=== PATIENT | female | born 1955 | race Caucasian/White ===

== ENCOUNTER 2017-10-14 07:30 | Inpatient (IN) | payer SELFPAY ==
[2017-10-14 07:47] VITALS: BMI 42.0
--- NOTE | 2017-10-14 08:00 | ED PDOC ---
Arrival/HPI - General Chief Complaint: Cough, Cold, Congestion Time Seen by Provider: 10/14/17 07:43 Historian: Patient - Critical Care Critical Care Minutes: 30 minutes - History of Present Illness Narrative History of Present Illness (Text): 10/14/17 07:53 61 year old obese Greek female, who recently immigrated from [place] one week ago with no significant past medical history, presents to the Emergency department complaining of blood in her cough, mouth and nares since this morning. Patient additionally informs petechial rash and ecchymosis on her body. Patient states visiting a doctor back in [place] and being prescribed medication with no improvement to symptoms. Patient denies any fever, chills, nausea, vomiting, diarrhea, abdominal pain, chest pain, shortness of breath or any other complaints. Patient denies any social history of smoking or drinking alcohol. Time/Duration: 4-6 hours Symptom Onset: Gradual Symptom Course: Unchanged Activities at Onset: Light Context: Home Associated Symptoms (Text): 10/14/17 08:54 Patient is here visiting her son from [place]. She arrives several days ago. The son translates. Son reports that one week ago in [place] she began to cough up blood. She was seen by her doctor and put on an unknown medication. Coughing up blood has continued and he brought her to the emergency department. I observed on exam blood in her naris bleeding from her gums bleeding in her throat a petechial rash on her chest and generalized ecchymosis. She has some generalized fatigue. No weight loss. She is morbidly obese. No congestion or dyspnea. No chest pain or palpitations. No abdominal pain nausea or vomiting. She denies any blood in her bowels. Past Medical History - Provider Review Nursing Documentation Reviewed: Yes - Travel History If Yes, travel location?: [place] - Infectious Disease Hx of Infectious Diseases: None - Reproductive Menopause: Yes - Cardiac Hx Cardiac Disorders: No - Pulmonary Hx Respiratory Disorders: No - Neurological Hx Neurological Disorder: No - Renal Hx Renal Disorder: No - Psychiatric Hx Substance Use: No - Anesthesia Hx Anesthesia: No Family/Social History - Physician Review Nursing Documentation Reviewed: Yes Family/Social History: No Known Family HX Smoking Status: Never Smoked Hx Alcohol Use: No Hx Substance Use: No Allergies/Home Meds Allergies/Adverse Reactions: Allergies No Known Allergies Allergy (Verified 10/14/17 07:45) Home Medications: Home Meds Medication Instructions Recorded Confirmed Unobtainable 10/14/17 10/14/17 Review of Systems - Physician Review All systems were reviewed & negative as marked: Yes - Review of Systems Constitutional: Fatigue. absent: Fevers Eyes: Normal ENT: Epistaxis Respiratory: Cough, Sputum. absent: SOB, Wheezing Cardiovascular: Normal. absent: Chest Pain, Palpitations, Syncope Gastrointestinal: Normal. absent: Abdominal Pain, Diarrhea, Nausea, Vomiting, Hematochezia, Hematemesis Genitourinary Female: Normal. absent: Hematuria Musculoskeletal: Normal Skin: Rash (petechial), Other (ecchymosis on her skin) Neurological: Normal Psychiatric: Normal Physical Exam Vital Signs Reviewed: Yes Vital Signs Temp Pulse Resp BP Pulse Ox 10/14/17 07:46 97.8 F 90 18 146/89 95 Temperature: Afebrile Blood Pressure: Normal Pulse: Regular Respiratory Rate: Normal Appearance: Positive for: Non-Toxic, Comfortable, Other (morbidly obese) Pain Distress: None Mental Status: Positive for: other (Awake alert and cooperative) - Systems Exam Head: Present: Atraumatic, Normocephalic Pupils: Present: PERRL Extroacular Muscles: Present: EOMI Conjunctiva: Present: Normal Ears: Present: NORMAL TM, Normal Canal. No: Erythema Mouth: Present: Moist Mucous Membranes Pharnyx: Present: Other (blood in back of her throat). No: ERYTHEMA, EXUDATE, TONSILS ENLARGED Nose (Internal): Present: Other (Blood in her right nare) Neck: Present: Normal Range of Motion Respiratory/Chest: Present: Good Air Exchange, Decreased Breath Sounds ( bilaterally). No: Respiratory Distress, Accessory Muscle Use Cardiovascular: Present: Regular Rate and Rhythm, Normal S1, S2. No: Murmurs Abdomen: No: Tenderness, Distention, Peritoneal Signs, Rebound, Guarding Back: Present: Normal Inspection Upper Extremity: Present: Normal Inspection. No: Cyanosis, Edema Lower Extremity: Present: Normal Inspection. No: Edema Neurological: Present: GCS=15, CN II-XII Intact, Speech Normal, Motor Func Grossly Intact Skin: Present: Warm, Dry, Normal Color, Other (petechial rash. Ecchymosis on both her extremities.). No: Rashes Psychiatric: Present: Alert, Normal Insight, Normal Concentration Medical Decision Making ED Course and Treatment: 10/14/17 08:04 Impression: 61 year old female presents to the Emergency department for blood in her cough, nares and mouth. Differential Diagnosis included but are not limited to: Leukemia Plan: -- Blood Type/Screen -- EKG -- Labs -- Chest X-ray -- Blood Culture -- Reassess and disposition Progress Notes: 10/14/17 08:19 EKG shows normal sinus rhythm rate approximately [address] or T-wave changes and Q waves inferiorly. 10/14/17 08:[address] Gomes, who is aware and accepts patient to the ICU. 10/14/17 08:[address] Anders, who is aware and agrees to accept patient under his service. - Lab Interpretations Lab Results: 10/14/17 08:00 10/14/17 08:00 Lab Results 10/14/17 08:00: Blood Type Pending, Antibody Screen Pending, BBK History Checked No verified bt 10/14/17 08:00: Sodium 137, Potassium 4.6, Chloride 100, Carbon Dioxide 19 L, Anion Gap 23 H, BUN 47 H, Creatinine 1.4 H, Est GFR ( Amer) 46, Est GFR ( Non-Af Amer) 38, Random Glucose 603 H*, Calcium 9.2, Total Bilirubin 0.6, AST 45 H, ALT 42, Alkaline Phosphatase 101, Lactate Dehydrogenase 459, Total Creatine Kinase 24 L, Troponin I < 0.01, Total Protein 8.1, Albumin 3.6, Globulin 4.6, Albumin/Globulin Ratio 0.8 L, Lipase 408 H 10/14/17 08:00: WBC 1.1 L*, RBC 4.54, Hgb 11.7 L, Hct 36.3, MCV 80.0, MCH 25.8, MCHC 32.2, RDW 15.2 H, Plt Count 2 L*, Gran % 10.2 L, Lymph % (Auto) 81.5 H, [place] % (Auto) 7.4 H, Eos % (Auto) 0.0 L, Baso % (Auto) 0.9, Gran # 0.11 L, Lymph # (Auto) 0.9 L, [place] # (Auto) 0.1, Eos # (Auto) 0.0, Baso # (Auto) 0.01, Neutrophils % (Manual) 4 L, Lymphocytes % (Manual) 90 H, Monocytes % (Manual) 6 , Platelet Evaluation Low 10/14/17 08:00: PT 14.1 H, INR 1.22 H, APTT 25.7 - RAD Interpretation Radiology Orders: 10/14/17 07:54 CHEST PORTABLE [RAD] Stat Chest 1 view shows no infiltrate effusion or cardiomegaly. Inventory Assistant: ED Physician - Medication Orders Current Medication Orders: Sodium Chloride (Sodium Chloride 0.9%) 1,000 mls @ 500 mls/hr IV ONCE ONE Stop: 10/14/17 10:52 Discontinued Medications Insulin Human Regular (Humulin R) 10 units IV ONCE STA Stop: 10/14/17 08:54 - Scribe Statement The provider has reviewed the documentation as recorded by the Scribe Tracie Haynes. All medical record entries made by the Scribe were at my direction and personally dictated by me. I have reviewed the chart and agree that the record accurately reflects my personal performance of the history, physical exam, medical decision making, and the department course for this patient. I have also personally directed, reviewed, and agree with the discharge instructions and disposition. Disposition/Present on Arrival - Present on Arrival Any Indicators Present on Arrival: No History of DVT/PE: No History of Uncontrolled Diabetes: No Urinary Catheter: No History of Decub. Ulcer: No History Surgical Site Infection Following: None - Disposition Have Diagnosis and Disposition been Completed?: Yes Diagnosis: Pancytopenia, Hyperglycemia Disposition: HOSPITALIZED Disposition Time: 08:59 Patient Plan: ICU Patient Problems: Current Active Problems Problem Status Onset Hyperglycemia Acute Pancytopenia Acute Condition: CRITICAL
[2017-10-14 08:22] LABS: BASO # 0.01 K/mm3 (0.0-2.0); BASO % 0.9 % (0.0-3.0); GRAN # 0.11 (1.4-6.5); GRAN % 10.2 % (50.0-68.0); HEMOGLOBIN 11.7 g/dL (12.0-16.0); LYMPH # 0.9 (1.2-3.4); LYMPH % 81.5 % (22.0-35.0); MEAN CORPUSCULAR HEMOGLOBIN 25.8 pg (25.0-35.0); MEAN CORPUSCULAR HGB CONC 32.2 g/dl (31.0-37.0); MONO # 0.1 (0.1-0.6); MONO % 7.4 % (1.0-6.0); RBC 4.54 10^6/uL (3.5-6.1); RED CELL DISTRIBUTION WIDTH 15.2 % (11.5-14.5)
[2017-10-14 08:27] LABS: PLATELET COUNT 2 10^3/uL (120.0-450.0); WHITE BLOOD COUNT 1.1 10^3/ul (4.5-11.0)
[2017-10-14 08:31] LABS: INR 1.22 (0.93-1.08); PARTIAL THROMBOPLASTIN TIME 25.7 Seconds (25.1-36.5); PROTHROMBIN TIME 14.1 SECONDS (9.4-12.5)
[2017-10-14 08:44] LABS: TROPONIN I < 0.01 ng/mL
[2017-10-14 08:47] LABS: ALB/GLOB RATIO 0.8 (1.1-1.8); ALBUMIN 3.6 g/dL (3.0-4.8); ALT/SGPT 42 U/L (7-56); AST/SGOT 45 U/L (14-36); BLOOD UREA NITROGEN 47 mg/dL (7-21); CALCIUM 9.2 mg/dL (8.4-10.5); GFR AFRICAN-AMERICAN 46; GFR NON-AFRICAN AMERICAN 38; LIPASE 408 U/L (23-300)
[2017-10-14] MEDS ORDERED: Sodium Chloride 0.9% 1,000 ML IV ONE (08:53)
[2017-10-14] MEDS ORDERED: Insulin Regular 1 UNITS/0.01 ML ML IV STA (08:53)
[2017-10-14 08:54] LABS: LYMPHOCYTE 90 % (22.0-35.0); MONOCYTE 6 % (1.0-6.0); NEUTROPHIL 4 % (50.0-70.0); PLATELET ESTIMATE LOW (NORMAL)
--- NOTE | 2017-10-14 08:55 | RAD ---
HISTORY: cough COMPARISON: No prior. FINDINGS: LUNGS: No active pulmonary disease. PLEURA: No significant pleural effusion identified, no pneumothorax apparent. CARDIOVASCULAR: Normal. OSSEOUS STRUCTURES: No significant abnormalities. VISUALIZED UPPER ABDOMEN: Normal. OTHER FINDINGS: None. IMPRESSION: No active disease.
[2017-10-14 09:48] VITALS: O2SAT 98
[2017-10-14] MEDS ORDERED: Insulin Regular 100 UNITS in Sodium Chloride 0.9% 99 ML IV PRN (09:50)
[2017-10-14] MEDS ORDERED: Sodium Chloride 0.9% 1,000 ML IV STA (09:50)
[2017-10-14 09:57] LABS: PLATELET COUNT MANUAL 3 K/mm3 (120-450)
[2017-10-14] MEDS ORDERED: Sodium Chloride 0.9% 1,000 ML IV SCH (10:00)
[2017-10-14 10:09] LABS: VENOUS BLOOD GAS BASE EXCESS -3.9 mmol/L (0.0-2.0); VENOUS BLOOD GAS PO2 64 mm/Hg (30-55); VENOUS BLOOD PH 7.34 (7.32-7.43)
--- NOTE | 2017-10-14 10:13 | CP.PCM.HP ---
<Martita Matthew - Last Filed: 10/14/17 12:48> History of Present Illness - History of Present Illness History of Present Illness: CC: Coughing blood Patient is a 61 y/o Beninese female with PMHx of morbidly obese, DM ?hemophilia/ thin blood presenting with hemoptysis. Patient is visiting from [place] 4 days ago, speaks only Uzbek, son was at the bed side and served as the translation. 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 This Am patient coughed up blood, thus son brought her to the ED. Prior to this, patient had similar episode 7 years ago in [place], was diagnosed with ?hemophilia , and was giving similar medications with significant improvement. Patient doesn 't remember the name of the medication. Patient other gregorio, denies weakness, headache, dizziness, weight loss, fever or chills. Admits to gum bleed, and petechial rash. No histories of malignancies. States has diabetes induced by medication she was taking in [place] for her hemophilia. Admits to chronic knee pain doni. Denies any insect bites. In the ED, patient was found to be pancytopenia with severe neutropenia, and plt of 2. Patient is placed on neutropenic protocol, and is to be admitted to ICU. Patient also has glucose of 600, with gap of 18, and is to be placed on insulin drip. PMHx: Morbidly obese, DM, ?hemophilia. PSHx: Denies FMHx: Mom diabetes, doesn't know her dad's medical history, denies family histories of cancers or blood disorders. Denies issues with child in the past. Social: Denies alcohol, tobacco, and illicit drug use. Lives with son in [facility], able to ambulate with no difficulties. Home meds: Unknown Allergies: Denies Present on Admission - Present on Admission Any Indicators Present on Admission: Yes History of DVT/PE: No History of Uncontrolled Diabetes: Yes Urinary Catheter: No Decubitus Ulcer Present: No Review of Systems - Constitutional Constitutional: absent: Chills, Daytime Sleepiness, Excessive Sweating, Fatigue , Fever, Frequent Falls, Headache, Lethargy, Malaise, Night Sweats, Sleep Apnea , Weight Loss, Weakness - EENT Eyes: absent: Blurred Vision, Change in Vision Ears: absent: Abnormal Hearing, Dizziness Nose/Mouth/Throat: Bleeding Gums. absent: Sore Throat - Cardiovascular Cardiovascular: absent: Chest Pain, Chest Pain at Rest, Claudication, Dyspnea, Dyspnea on Exertion, Edema, Lightheadedness, Orthopnea, Palpitations, Syncope - Respiratory Respiratory: Cough, Hemoptysis. absent: Dyspnea, Dyspnea on Exertion, Wheezing , Snoring, Stridor, Chest Congestion, Pain with Coughing - Gastrointestinal Gastrointestinal: absent: Abdominal Pain, Belching, Bloating, Cramping, Diarrhea , Dyspepsia, Dysphagia, Heartburn, Nausea - Genitourinary Genitourinary: absent: Dysuria, Hematuria, Pyuria - Musculoskeletal Musculoskeletal: absent: Arthralgias, Back Pain, Myalgias, Neck Pain, Numbness, Stiffness - Integumentary Integumentary: Bleeding Lesions, Rash. absent: Photosensitivity - Neurological Neurological: absent: Disequilibrium, Dizziness, Headaches, Weakness - Psychiatric Psychiatric: absent: Anxiety - Endocrine Endocrine: absent: Fatigue, Palpitations - Hematologic/Lymphatic Hematologic: Easy Bleeding, Easy Bruising. absent: Lymphadenopathy Past Patient History - Infectious Disease Hx of Infectious Diseases: None - Past Social History Smoking Status: Never Smoked Alcohol: None Drugs: Denies Home Situation {Lives}: With Family - CARDIAC Hx Cardiac Disorders: No - PULMONARY Hx Respiratory Disorders: No - NEUROLOGICAL Hx Neurological Disorder: No - RENAL Hx Chronic Kidney Disease: No - PSYCHIATRIC Hx Substance Use: No - ANESTHESIA Hx Anesthesia: No Meds Allergies/Adverse Reactions: Allergies Allergy/AdvReac Type Severity Reaction Status Date / Time No Known Allergies Allergy Verified 10/14/17 07:45 Physical Exam - Constitutional Appears: No Acute Distress - Head Exam Head Exam: ATRAUMATIC, NORMAL INSPECTION, NORMOCEPHALIC - Eye Exam Eye Exam: EOMI, Normal appearance, PERRL. absent: Scleral icterus Pupil Exam: NORMAL ACCOMODATION - ENT Exam ENT Exam: Mucous Membranes Dry Additional comments: + bleeding gum dry bleed in the nose. - Neck Exam Additional comments: + obese short neck, unable to appreciate any thyromegaly. - Respiratory Exam Respiratory Exam: Clear to Auscultation Bilateral, NORMAL BREATHING PATTERN. absent: Rales, Rhonchi, Wheezes, Respiratory Distress, Stridor - Cardiovascular Exam Cardiovascular Exam: REGULAR RHYTHM, RRR, +S2. absent: Bradycardia, Tachycardia , Diastolic murmur, Gallop, Irregular Rhythm, JVD, Rubs, Systolic Murmur - GI/Abdominal Exam GI & Abdominal Exam: Normal Bowel Sounds, Soft. absent: Distended, Firm, Guarding, Mass, Rebound, Rigid, Tenderness Additional comments: + Obese abdomen. - Extremities Exam Extremities exam: Positive for: normal inspection. Negative for: pedal edema, tenderness, pedal pulses present - Back Exam Back exam: rash noted. absent: tenderness - Neurological Exam Neurological exam: Alert, Oriented x3, Reflexes Normal - Psychiatric Exam Psychiatric exam: Normal Affect, Normal Mood - Skin Skin Exam: Dry, Petechiae (in the back, truck, and extremities. ), Rash ( ecchymosis on doni upper extremities. ), Warm Results - Vital Signs Recent Vital Signs: Last Vital Signs Temp 97.8 F 10/14/17 07:46 Pulse 80 10/14/17 09:32 Resp 16 10/14/17 09:32 BP 112/76 10/14/17 09:32 Pulse Ox 98 10/14/17 09:32 - Labs Result Diagrams: 10/14/17 08:00 10/14/17 09:45 Labs: Laboratory Results - last 24 hr 10/14/17 10/14/17 10/14/17 08:35 09:50 09:50 Manual Plt Count 3 L* Retic Count 1.34 pO2 64 H VBG pH 7.34 VBG pCO2 40.0 VBG HCO3 21.6 VBG Total CO2 22.8 VBG O2 Sat (Calc) 94.0 H VBG Base Excess -3.9 L VBG Potassium 3.8 Sodium 135.0 Chloride 101.0 Glucose 551 H* Lactate 3.3 H FiO2 21.0 Venous Blood Potassium 3.8 Blood Type Confirm O POSITIVE Assessment & Plan - Assessment and Plan (Free Text) Assessment: Patient is a 61 y/o Beninese female with PMHx of morbidly obese, DM, ? hemophilia presenting with hemoptysis for 1 week, along with petechial rash. Patient was found to have pancytopenia with severe neutropenia, and thrombocytopenia with plt of 2. Patient also has uncontrolled diabetes with gap of 18, and is to be admitted in ICU for further management and monitoring. Plan: 1) Hemoptysis likely due to severe thrombocytopnia with platelet count of 2 - PT/INR/APTT appears withing normal limit - Work up and differential as stated below - Patient to be cross mashed and transfused a unit of plt - Hematology is consulted 2) Pancytopenia with differentials including aplastic anemia/Acute leukemia/MDS/ autoimmune/viral ( HIV, EBV)/ HLH/Malaria/ paraneoplastic syndrome - ANC of 0.11 lymph%81.5% , plt of 2, - Heme/onc consulted,concerning for acute leukemia, patient need to be transferred to Tertiary care center. - Patient to be type and crossed and transfused a unit of plt - Retic count, manual plt, and peripheral smear ordered. - iorn panel, vit b12 and folate ordered. - Uric acid ordered - HIV/EBV ordered - Electrophoresis ordered. - Will consider Myeloma work-up - Autoimmune work up sent - Will add fibrinogen to make sure patient is not in DIC - 3) Hyperosmolar hyperglycemia- gap of 18 - Will start insulin drip, and check fingerstick q1 - NS@200cc/hr - BMP Q6H - HGBA1C ordered - Diabetic education 4) Lactic acidosis likely due to rapid cell turnover - On NS@ 200cc/hr. 5) Severe thrombocytopenia- work up as above - CT head pending. 5) DVT/gi prophylaxis: VTE compressive devices, and protonix. Spoke to Dr Colon, recommended patient be transferred to a tertiary care hospital. Contact [facility] spoke to Heme/onc fellow Dr Nataliya Julian at [phone]. Also spoke to transfer center, the accepting physician will be Dr Mitchell Meade. - Date & Time Date: 10/14/17 Time: 12:15 <Fariha Cueva - Last Filed: 10/14/17 14:29> Results - Vital Signs Recent Vital Signs: Last Vital Signs Temp 97.8 F 10/14/17 07:46 Pulse 80 10/14/17 09:32 Resp 16 10/14/17 09:32 BP 112/76 10/14/17 09:32 Pulse Ox 98 10/14/17 09:32 - Labs Result Diagrams: 10/14/17 08:00 10/14/17 09:45 Labs: Laboratory Results - last 24 hr 10/14/17 10/14/17 10/14/17 08:35 09:45 09:45 Manual Plt Count Retic Count Fibrinogen pO2 VBG pH VBG pCO2 VBG HCO3 VBG Total CO2 VBG O2 Sat (Calc) VBG Base Excess VBG Potassium Glucose Lactate FiO2 Sodium 136 Potassium 3.8 Chloride 103 Carbon Dioxide 17 L Anion Gap 20 BUN 49 H Creatinine 1.3 H Est GFR ( Amer) 50 Est GFR (Non-Af Amer) 42 POC Glucose (mg/dL) Random Glucose 570 H* Uric Acid 6.9 H Calcium 9.1 Iron 37 L TIBC 352 % Saturation 10 L TSH 3rd Generation Venous Blood Potassium Blood Type Confirm O POSITIVE 10/14/17 10/14/17 10/14/17 09:50 09:50 10:34 Manual Plt Count 3 L* Retic Count 1.34 Fibrinogen pO2 64 H VBG pH 7.34 VBG pCO2 40.0 VBG HCO3 21.6 VBG Total CO2 22.8 VBG O2 Sat (Calc) 94.0 H VBG Base Excess -3.9 L VBG Potassium 3.8 Glucose 551 H* Lactate 3.3 H FiO2 21.0 Sodium 135.0 Potassium Chloride 101.0 Carbon Dioxide Anion Gap BUN Creatinine Est GFR ( Amer) Est GFR (Non-Af Amer) POC Glucose (mg/dL) 373 H Random Glucose Uric Acid Calcium Iron TIBC % Saturation TSH 3rd Generation Venous Blood Potassium 3.8 Blood Type Confirm 10/14/17 10/14/17 10/14/17 11:15 11:54 12:25 Manual Plt Count Retic Count Fibrinogen 524 H pO2 VBG pH VBG pCO2 VBG HCO3 VBG Total CO2 VBG O2 Sat (Calc) VBG Base Excess VBG Potassium Glucose Lactate FiO2 Sodium Potassium Chloride Carbon Dioxide Anion Gap BUN Creatinine Est GFR ( Amer) Est GFR (Non-Af Amer) POC Glucose (mg/dL) 338 H 398 H Random Glucose Uric Acid Calcium Iron TIBC % Saturation TSH 3rd Generation Venous Blood Potassium Blood Type Confirm 10/14/17 10/14/17 10/14/17 12:45 12:49 13:56 Manual Plt Count Retic Count Fibrinogen pO2 VBG pH VBG pCO2 VBG HCO3 VBG Total CO2 VBG O2 Sat (Calc) VBG Base Excess VBG Potassium Glucose Lactate FiO2 Sodium Potassium Chloride Carbon Dioxide Anion Gap BUN Creatinine Est GFR ( Amer) Est GFR (Non-Af Amer) POC Glucose (mg/dL) 250 H 244 H Random Glucose Uric Acid Calcium Iron TIBC % Saturation TSH 3rd Generation 0.62 Venous Blood Potassium Blood Type Confirm Attending/Attestation - Attestation I have personally seen and examined this patient.: Yes I have fully participated in the care of the patient.: Yes I have reviewed all pertinent clinical information: Yes Notes (Text): 10/14/17 14:23 Attending note; Patient seen and examined with resident in ER. Patient's son by the bedside. Patient is a 61 -year-old Beninese female with PMHx of obesity,, DM, ?hemophilia /thin blood as per patient is presenting with hemoptysis for 1 week, along with petechial rash. Patient was found to have pancytopenia with severe neutropenia, and thrombocytopenia. Patient had nosebleed/gum bleed which stopped spontaneously. Currently no active bleeding noted. Denies any hematuria, hematemesis, Melena. Platelet was found to be 2000. Manual platelet count is 3000. Patient is also found to have severe neutropenia with absolute neutrophil count of 110. Placed on neutropenic precautions. No fever noted. 2 units of platelets ordered. 1 unit given. Patient is alert and awake oriented. Mild DKA; patient started on insulin drip. Monitor fingerstick and anion gap. Continue IV fluids. Case discussed with hematology in detail. Suggested to transfer to tertiary Center. Case discussed with [facility]. Possible transfer today. The diagnosis, treatment option discussed with patient and patient's son in detail. Case discussed with e commerce web developer in detail. Monitor in ICU closely.
[2017-10-14 10:31] LABS: CALCIUM 9.1 mg/dL (8.4-10.5); URIC ACID 6.9 mg/dL (2.5-6.2)
[2017-10-14 10:47] LABS: IRON 37 ug/dL (45-180)
[2017-10-14 10:57] LABS: % IRON SATURATION 10 % (20-55); TOTAL IRON BINDING CAPACITY 352 ug/dL (265-497)
--- NOTE | 2017-10-14 14:17 | CARD ---
APPROVED REPORT EKG Measurement Heart [id number] <Conclusion> Normal sinus rhythm Inferior infarct, age undetermined Abnormal ECG
[2017-10-14 15:03] LABS: URINE APPEARANCE CLEAR (CLEAR); URINE BILIRUBIN NEGATIVE (NEGATIVE); URINE BLOOD LARGE (NEGATIVE); URINE COLOR YELLOW (YELLOW); URINE GLUCOSE (UA) >=1000 mg/dL (NEGATIVE); URINE LEUKOCYTE ESTERASE NEGATIVE Leu/uL (NEGATIVE); URINE PROTEIN 30 mg/dL (<30 mg/dL); URINE UROBILINOGEN 0.2 E.U./dL (<1 E.U./dL)
[2017-10-14 15:11] LABS: URINE BACTERIA SMALL (NEG); URINE EPITHELIAL CELLS 0 - 2 /hpf (0-5); URINE RBC 25 - 30 /hpf (0-2); URINE WBC 0 - 2 /hpf (0-6)
[2017-10-14 16:26] VITALS: BP 106/60; RESP 18; TEMP 98
[2017-10-14 16:36] LABS: FERRITIN 53.8 ng/mL
[2017-10-14 16:56] VITALS: PULSE 86
[2017-10-14 17:03] LABS: FOLATE 4.4 ng/mL
--- NOTE | 2017-10-14 22:33 | CON ---
DATE: 10/14/2017 [facility] CONSULTATION REQUESTING PHYSICIAN: Rufino Anders MD CHIEF COMPLAINT: The patient presented with complaint of bleeding gums and bleeding from her nose as well as blood in her sputum when she coughs. HISTORY OF PRESENT ILLNESS: Ms. Oconnell is a 61-year-old Samoan, non-Sudanese speaking female that migrated from [place] approximately one week ago. The patient's son was giving the history and stated that while she was in [place], similar symptoms of bleeding from her mouth and nose occurred there. They had gone to a physician and was given some medications, but he does not know what the medication was. Symptoms did not maurice, and she was brought [place] the [place]. The patient has rash or petechiae on her chest as well as areas of ecchymosis around her body. No fever, chills. No nausea or vomiting. No chest pain or abdominal pain. No diarrhea. The patient is awake and alert. No respiratory distress and is hemodynamically stable at this time. PAST MEDICAL HISTORY: As above. ALLERGIES: SHE HAS NO KNOWN ALLERGIES. CURRENT MEDICATIONS: Can be evaluated as per the nurse's intake form. SOCIAL HISTORY: No history of smoking or ETOH abuse and no drug abuse. FAMILY HISTORY: Noncontributory. REVIEW OF SYSTEMS: CONSTITUTIONAL: The patient does have some fatigue but no fever. HEENT: The patient has blood in her nose area as well as her mouth, around her gums and her teeth. RESPIRATORY: She has occasional cough and sputum. CARDIOVASCULAR: All normal. GASTROINTESTINAL: All normal. GENITOURINARY: All normal. MUSCULOSKELETAL: All normal. NEUROPSYCHIATRIC: All normal. INTEGUMENTARY: All normal. ENDOCRINE: All normal. HEMATOLOGIC: The patient has pancytopenia. IMMUNOLOGIC: All normal. PHYSICAL EXAMINATION: VITAL SIGNS: Her temperature is 97.8, pulse is 90, respirations are 18, and BP is 146/89. O2 saturation on room air is 95%. HEENT: Head is atraumatic, normocephalic. Eyes are reactive to light. Ear, nose and throat: Note that in the nose there is dried blood around the nares and there is dry blood around the patient's gums and on her teeth. NECK: Supple. No JVD. No thyroid enlargement. RESPIRATORY: Lungs are clear to auscultation and percussion. HEART: Regular rate and rhythm. Normal S1, S2. ABDOMEN: Soft, but obese. Decreased bowel sounds. GENITALIA AND RECTAL: Deferred. MUSCULOSKELETAL: No joint deformities. EXTREMITIES: Reveal 1+ lower extremity edema. NEUROLOGIC: The patient seems to be grossly intact. LABORATORY DATA: As far as her laboratories are concerned, her white count is 1.1, hemoglobin is 11.7, hematocrit 36.3 with platelets of 2000. Manually calculated platelets are 3000. Her sodium is 137, potassium 4.6, chloride 100, CO2 of 19 with BUN of 47, creatinine of 1.4, and glucose of 603. As far as chest x-ray, it shows no active disease. The patient had CT of the head, and the results are pending. IMPRESSION: This patient has severe thrombocytopenia and leukopenia and mild anemia. The patient also is noted to have hyperglycemia with no history of diabetes in the past. She is obese with acute renal insufficiency and metabolic acidosis. As far as our plan, we will get Hematology-Oncology consult. The patient is scheduled for platelet transfusion and is getting intravenous fluids as well as Protonix and is going to be started on an insulin drip. We will monitor her glucose closely and put the patient in reverse isolation. We will continue to treat aggressively along with the other consultants and the primary care doctor. Weston Gomes MD
[2017-10-15] MEDS ORDERED: Pantoprazole 40 mg EC Tab PO SCH (06:00)
[2017-10-15 10:57] LABS: HEPATITIS B SURFACE AG Negative (NEGATIVE)
[2017-10-15 11:03] LABS: HEPATITIS A IGM NEGATIVE (NEGATIVE); HEPATITIS B CORE AB NEGATIVE (NEGATIVE)
[2017-10-15 11:14] LABS: HEPATITIS C ANTIBODY NEGATIVE (NEGATIVE)
--- NOTE | 2017-10-15 19:52 | CT ---
PROCEDURE: CT HEAD WITHOUT CONTRAST. HISTORY: r/o hemorrhage COMPARISON: None available. TECHNIQUE: Axial computed tomography images were obtained through the head/brain without intravenous contrast. Radiation dose: Total exam DLP = 830 mGy-cm. This CT exam was performed using one or more of the following dose reduction techniques: Automated exposure control, adjustment of the mA and/or kV according to patient size, and/or use of iterative reconstruction technique. FINDINGS: HEMORRHAGE: No intracranial hemorrhage. BRAIN: No mass effect or edema. There is a moderate amount of atrophy especially in the frontal lobes. VENTRICLES: Unremarkable. No hydrocephalus. CALVARIUM: Unremarkable. PARANASAL SINUSES: Unremarkable as visualized. No significant inflammatory changes. MASTOID AIR CELLS: Unremarkable as visualized. No inflammatory changes. OTHER FINDINGS: None. IMPRESSION: No acute intracranial findings
[2017-10-17 00:08] LABS: ALBUMIN (PEP) 2.9 g/dL (3.8-4.8); ALPHA-1-GLOBULIN (PEP) 0.4 g/dL (0.2-0.3)
== END 2017-10-15 04:30 | disposition short-term general hospital (02) | DRG 808 ==
LOC: ED 07:30 → ERH 08:32 → CCU 10:16
PROVIDERS: ADMIT Internal Medicine; ATTEND Internal Medicine
PROC: 6A550Z2 Pheresis of Platelets, Single (ICD-10-PCS; principal; 2017-10-14)
DX: D61.818 Other pancytopenia (principal); D66 Hereditary factor VIII deficiency; E11.10 Type 2 diabetes mellitus with ketoacidosis without coma; E87.2 Acidosis; Z68.41 Body mass index [BMI] 40.0-44.9, adult; E11.65 Type 2 diabetes mellitus with hyperglycemia; E66.9 Obesity, unspecified; G89.29 Other chronic pain; N28.9 Disorder of kidney and ureter, unspecified; R04.0 Epistaxis; Z83.3 Family history of diabetes mellitus